=== PATIENT | male | born 1950 | race Caucasian/White ===

== ENCOUNTER 2017-06-05 09:38 | Emergency (ER) | payer MEDICARE ==
[~2017-06-05] VITALS: Ht 182.8 cm; Wt 104.3 kg
[~2017-06-05 09:38] MED LIST: ALIGN4 M1 PO; ASPIRIN325 MG PO; CARAFATE1 G1 PO; DAYPRO600 M1 PO; DIABETA5 MG PO; DOXYCYCLINE100 M3 PO; FLOMAX0.4 MG PO; GLUCOPHAGE1000 MG PO; KEFLEX500 M1 PO; LEVBID0.375 M1 PO; LEVEMIR FLEX100 U/ML SC; LEVEMIR10 ML SC; LEVEMIR100 U/ML SC; LISINOPRIL20 MG PO; MEDROL DOSEPAK4 MG PO; METFORMIN1000 MG PO; METFORMIN500 MG PO; NAPROSYN500 MG PO; NEXIUM40 MG PO; NORCO 325 MG-51 TAB PO; PARAFON FORTE500 MG PO; PERCOCET 325 MG1 TA5; PERCOCET 325 MG1 TA6; SIMVASTATIN40 MG PO; TAMSULOSIN HCL0.4 MG PO; TENORMIN100 MG PO; TRICOR54 MG PO; ZANTAC 7575 MG PO; ZOCOR80 MG PO
[2017-06-05 09:42] VITALS: BP 157/82
[2017-06-05] MEDS ORDERED: METOPROLOL SUCC25 M2 PO (09:48)
[2017-06-05] MEDS ORDERED: ROCALTROL0.5 MC1 PO (09:49)
[2017-06-05] MEDS ORDERED: CRESTOR20 M1 PO (09:50)
[2017-06-05] MEDS ORDERED: OYSTER SHELL 51 EACH PO (09:50)
[2017-06-05] MEDS ORDERED: CYCLOBENZAPRINE10 MG PO (10:13)
[2017-06-05] MEDS ORDERED: HYDROCODONE BIT1 T11 PO (10:13)
[2017-06-05] MEDS ORDERED: PREDNISONE50 MG PO (10:13)
== END 2017-06-05 10:25 | disposition home or self-care (01) ==
LOC: ED 09:38
DX: M54.32 Sciatica, left side (principal); I25.10 Atherosclerotic heart disease of native coronary artery without angina pectoris; I25.2 Old myocardial infarction; I10 Essential (primary) hypertension; E11.9 Type 2 diabetes mellitus without complications; E78.5 Hyperlipidemia, unspecified; Z79.4 Long term (current) use of insulin; Z91.041 Radiographic dye allergy status; Z88.8 Allergy status to other drugs, medicaments and biological substances; Z79.899 Other long term (current) drug therapy; Z79.82 Long term (current) use of aspirin

== ENCOUNTER → 2017-06-14 | Outpatient (CLI) | payer MEDICARE ==
[~2017-06-14] MED LIST changes: +CRESTOR20 M1 PO; +CYCLOBENZAPRINE10 MG PO; +HYDROCODONE BIT1 T11 PO; +METOPROLOL SUCC25 M2 PO; +OYSTER SHELL 51 EACH PO; +PREDNISONE50 MG PO; +ROCALTROL0.5 MC1 PO
== END | disposition home or self-care (01) ==
LOC: RAD 16:31
DX: M16.12 Unilateral primary osteoarthritis, left hip (principal); G57.02 Lesion of sciatic nerve, left lower limb

== ENCOUNTER → 2017-07-05 | Outpatient (CLI) | payer MEDICARE | END | disposition home or self-care (01) | LOC: RAD 09:24 | DX: M51.16 Intervertebral disc disorders with radiculopathy, lumbar region (principal) ==